=== PATIENT | female | born 1980 | race Caucasian/White ===

== ENCOUNTER 2020-12-13 19:54 | Emergency (ER) | payer MEDICAID, OTHER ==
[~2020-12-13] VITALS: Ht 152.4 cm; Wt 63.5 kg
[2020-12-13 19:56] VITALS: BP 121/88
== END 2020-12-13 23:58 | disposition left against medical advice (07) ==
LOC: ER 19:54
DX: S91.301D Unspecified open wound, right foot, subsequent encounter (principal); Z53.21 Procedure and treatment not carried out due to patient leaving prior to being seen by health care provider; X58.XXXD Exposure to other specified factors, subsequent encounter

== ENCOUNTER 2021-06-29 13:35 | Emergency (ER) | payer MEDICAID ==
[~2021-06-29] VITALS: Ht 152.4 cm; Wt 63.5 kg
[2021-06-29 13:43] VITALS: BP 139/89
[2021-06-29] MEDS ORDERED: SODIUM CHLORIDE 0.9% 1,000 ML IV ONE (14:15)
[2021-06-29] MEDS ORDERED: KETOROLAC TROMETH 30 MG/ML 1ML VIAL IV ONE (14:15)
[2021-06-29] MEDS ORDERED: ONDANSETRON HCL 4 MG/2 ML VIAL IV ONE (14:15)
[2021-06-29 15:51] LABS: Albumin 3.9 g/dL (3.4-5.0)
[2021-06-29 15:54] LABS: BUN/Creatinine Ratio 22.4; Bilirubin, Total 0.6 mg/dL (0.2-1.0); Total Protein 8.2 g/dL (6.4-8.2)
[2021-06-29 16:53] LABS: Basophils # (auto) 0.1 10 ^3/uL (0-0.2); Basophils % (auto) 1.1 % (0.0-2.0); Eosinophils # (auto) 0.1 10 ^3/uL (0-0.8); Lymphocytes # (auto) 2.4 10 ^3/uL (0.4-5.4); Lymphocytes % (auto) 26.4 % (10.0-50.0); Monocytes # (auto) 0.6 10 ^3/uL (0-1.3); Monocytes % (auto) 7.1 % (0.0-12.0); Neutrophils # (auto) 5.8 10 ^3/uL (1.6-8.6); Neutrophils % (auto) 64.4 % (37.0-80.0); Nucleated Red Blood Cells % 0.1 %; Red Blood Cells 5.01 10^6/uL (4.0-5.20)
[2021-06-29 16:54] LABS: Hematocrit 46.1 % (36.0-46.0); Mean Corpuscular Hgb Conc. 34.8 g/dL (32.0-36.0); Mean Corpuscular Volume 91.9 fL (80.0-100.0); Red Cell Distribution Width 13.5 % (11.8-14.3)
[2021-06-29 18:36] LABS: Urine Blood Normal /uL (Negative); Urine Specific Gravity 1.027 (1.001-1.035)
[2021-06-29 18:37] LABS: Urine WBC 15-30 /hpf (0 - 5)
[2021-06-29 18:38] LABS: Urine Bacteria MANY /hpf (None Seen); Urine Mucus MODERATE (None Seen); Urine WBC Clumps Rare /hpf (None Seen)
[2021-06-29] MEDS ORDERED: NITR-87 PO (19:02)
[2021-06-29] MEDS ORDERED: TRAM-297 PO (19:02)
[2021-06-29] MEDS ORDERED: KETOROLAC TROMETH 60MG/2ML VIAL ONE (20:29)
[2021-06-29] MEDS ORDERED: KETOROLAC TROMETH 60MG/2ML VIAL IM ONE (20:45)
== END 2021-06-29 21:23 | disposition home or self-care (01) ==
LOC: ER 13:35
DX: N39.0 Urinary tract infection, site not specified (principal); J45.909 Unspecified asthma, uncomplicated; F17.210 Nicotine dependence, cigarettes, uncomplicated; Z79.899 Other long term (current) drug therapy; Z88.1 Allergy status to other antibiotic agents
CPT/HCPCS: 36415; 74176; 80053; 81001; 85025; 99284; J1885